=== PATIENT | male | born 1945 | race Caucasian/White ===

== ENCOUNTER 2024-12-27 09:31 | Emergency (ER) | payer OTHER, SELFPAY ==
[2024-12-27 09:43] VITALS: BP 136/85
--- NOTE | 2024-12-27 11:42 | ED.GENMED ---
History of Present Illness
General
Chief Complaint: Skin Surface Trauma
Time Seen by Provider: 12/27/24 11:37
History of Present Illness
History of Present Illness:
TIME OF INITIAL ENCOUNTER: 11:40 AM
HPI: Patient arrives due to laceration of the left thumb. He was cleaning something and was using a scraper. He has no significant pain. He is on Xarelto and bleeding persists.
EXAM:
GENERAL: Well appearing in no distress
HEENT: Moist oral mucosa
NEUROLOGIC: Excellent strength all extremities, no obvious coordination deficits
PSYCHIATRIC: Appropriate mental status, normal insight and judgement
EXTREMITIES: Mild tenderness to the affected area with decreased active range of motion,, no edema, moves all extremities equally
SKIN: There is a 3 cm linear laceration at the dorsal aspect of the left IP joint of the thumb
NUMBER AND COMPLEXITY OF PROBLEMS ADDRESSED AT THE ENCOUNTER
� Chronic conditions affecting care: Atrial fibrillation on Xarelto
� Acute Exacerbation and/or Progression of Chronic Illness: This is an acute problem
� Differential Diagnosis includes: Coagulopathy due to Xarelto use, laceration
AMOUNT AND/OR COMPLEXITY OF DATA TO BE REVIEWED AND ANALYZED
� I performed an independent evaluation of and my interpretation is:
EKG:
CT:
X-rays:
Laboratory Studies:
Other:
� Review of other/old records: The patient was seen here in 2021 related to a change in mental status
� Clinical information was obtained by an independent historian: None needed
� Prescriptions/Medications Considered but not given:
� Further testing considered but not performed:
RISK OF COMPLICATIONS AND/OR MORBIDITY OR MORTALITY OF PATIENT MANAGEMENT
� Social determinants of health affecting care: Lives at home
� Discussion with other providers:
� Escalation of care including admission/observation vs risk of discharge considered: Despite pressure, bleeding persisted. Sutures were placed after irrigation. Tetanus status updated.
ANY OTHER UPDATES:
Past History
Past History
ED Past Medical History: None
ED Past Surgical History: None
Social History
Tobacco: Non-smoker
Alcohol: None
Drug: None
Personal:
Living: with family
Phy Exam
Physical Exam
Physical Exam:
See HPI
Course
Orders/Labs/Results
Orders:
Orders
12/27/24 12:00
Tetanus/Diphth/Acelpertussis [Adacel] 0.5 ml IM .ONCE ONE
Vital Signs
Initial and Last Documented VS:
Initial Vital Signs
Temp Pulse Resp BP Pulse Ox
36.8 C 82 16 136/85 98
12/27/24 09:43 12/27/24 09:43 12/27/24 09:43 12/27/24 09:43 12/27/24 09:43
Last Documented Vital Signs
Temp Pulse Resp BP Pulse Ox
36.8 C 82 16 136/85 98
12/27/24 09:43 12/27/24 09:43 12/27/24 09:43 12/27/24 09:43 12/27/24 09:43
Procedures
Laceration Closure
Left Dorsal Thumb:
Status of Wound: clean
Description of Wound Edges: sharp
Preparation: cleaned with saline
Revision/Debridement: routine- no revision
Wound exploration: explored to base- no FB
Type of Closure: single layer closure
Skin Closure Material: 4-0 nylon
Number of sutures: 3
*Critical Care Note
Total Time (30-74mins, 75-104mins- exclusive of procedures): Not Applicable
ED Attending Note
-
Portions of this chart may have been created with voice recognition software.� Occasional wrong word or��sound alike� substitutions may have occurred due to the inherent limitations of voice recognition software.
Discharge Plan
Departure
Patient Disposition: Home (Routine Discharge)
Date of Disposition: 12/27/24
Time of Disposition: 12:00
Patient with high blood pressure during this ER visit?: Yes
Discharge Problem:
Laceration of thumb
Instructions: Laceration Repair With Stitches (DC), BLOOD PRESSURE
Referrals:
Marcos Luo MD [Family Provider] -
Activity Restrictions/Additional Instructions:
I placed 3 stitches and given the ongoing bleeding I then placed Surgicel pressure dressing. Leave this dressing on until tomorrow and then you can remove it just put a regular Band-Aid over top. If there is still some bleeding, I recommend
putting additional pressure at the wound. The stitches do need to be removed by your primary care physician in approximately 7 to 10 days.
Interventions
Interventions:
*Risk Screen - Suicide Last Done: 12/27/24 09:43
*General Assessment Last Done: 12/27/24 11:22
*Neglect/Abuse Screening Last Done: 12/27/24 09:43
*ED COVID-19 Vaccine History Last Done: 12/27/24 11:22
*Nursing Disposition Last Done: 12/27/24 13:08
ED-Skin Assessment Last Done: 12/27/24 11:22
Discharge Date and Time
Discharge Date/Time: 12/27/24 13:08
Print Language: UPPER SORBIAN
[2024-12-27] MEDS: ADACEL 0.5 ML IM (12:20)
== END 2024-12-27 13:08 | disposition home or self-care (01) ==
LOC: EMR 09:31
PROVIDERS: EMERGENCY PHYSICIAN Emergency Medicine; FAMILY PHYSICIAN Family Medicine
DX: S61.012A Laceration without foreign body of left thumb without damage to nail, initial encounter (principal); W27.4XXA Contact with kitchen utensil, initial encounter; R03.0 Elevated blood-pressure reading, without diagnosis of hypertension; Z23 Encounter for immunization
CPT/HCPCS: 99282; 12002; 90471; 90715